=== PATIENT | female | born 1935 | race Caucasian/White ===

== ENCOUNTER 2019-10-11 12:08 | Inpatient (IN) | payer MEDICARE, MEDICAID ==
[~2019-10-11] VITALS: Ht 152.4 cm; Wt 57.2 kg
[2019-10-11] MEDS ORDERED: ROCALTROL0.5 MCG PO ×2 (12:46→15:55)
[2019-10-11] MEDS ORDERED: NATURE'S BLEND F1 MG PO ×2 (12:47→15:57)
[2019-10-11] MEDS ORDERED: OMEPRAZOLE40 M1 PO ×2 (12:48→15:58)
[2019-10-11] MEDS ORDERED: LASIX20 MG PO ×2 (12:49→15:57)
[2019-10-11] MEDS ORDERED: ALPRAZOLAM XR0.5 M2 PO (12:49)
[2019-10-11] MEDS ORDERED: CLONIDINE HYDR0.1 M1 (12:50)
[2019-10-11] MEDS ORDERED: ATORVASTATIN CA10 M1 (12:50)
[2019-10-11] MEDS ORDERED: CARAFATE1 GM PO ×2 (12:50→15:55)
[2019-10-11] MEDS ORDERED: XARELTO20 M1 PO ×2 (12:52→15:53)
[2019-10-11] MEDS ORDERED: COREG6.25 M1 (12:52)
[2019-10-11] MEDS ORDERED: MONTELUKAST SOD10 M1 PO ×2 (12:53→15:56)
[2019-10-11] MEDS ORDERED: AMLODIPINE BESY1 T14 PO (12:53)
[2019-10-11] MEDS ORDERED: TIROSINT50 MC1 (12:53)
[2019-10-11] MEDS ORDERED: BUPROPION HCL150 M1 PO (12:54)
[2019-10-11 13:16] LABS: BASOPHIL % 0.3 % (0-2); CALCIUM 8.7 mg/dL (8.5-10.1); CARBON DIOXIDE 27.8 mmol/L (21-32); CHLORIDE SERUM 102 mmol/L (98-107); CREATININE SERUM 1.3 mg/dL (0.6-1.0); GLUCOSE SERUM 147 mg/dL (74-106); PLATELET COUNT 231 x10^3mcL (130-400); POTASSIUM SERUM 4.1 mmol/L (3.5-5.1); SODIUM SERUM 138 mmol/L (136-145)
[2019-10-11 13:20] LABS: ALKALINE PHOSPHATASE 75 U/L (46-116); ALT/SGPT 19 U/L (14-59); AST/SGOT 13 U/L (15-37); BILIRUBIN TOTAL 0.19 mg/dL (0.20-1.00); TOTAL PROTEIN, SERUM 6.3 g/dL (6.4-8.2)
[2019-10-11 15:46] VITALS: BP 126/57
[2019-10-11 15:50] VITALS: Ht 152.4 cm; Wt 57.2 kg
[2019-10-11] MEDS ORDERED: ADALAT CC60 MG PO (15:51)
[2019-10-11] MEDS ORDERED: DORZOLAMIDE HYD10 M4 OU (15:52)
[2019-10-11] MEDS ORDERED: LATANOPROST 0.7.5 ML OP (15:52)
[2019-10-11] MEDS ORDERED: NATURAL IRON65 MG PO (15:53)
[2019-10-11] MEDS ORDERED: AMLODIPINE BESY10 M2 PO (15:54)
[2019-10-11] MEDS ORDERED: XAN5 PO (15:54)
[2019-10-11] MEDS ORDERED: CLONIDINE HYDR0.1 M1 PO (15:54)
[2019-10-11] MEDS ORDERED: LEVOXYL0.05 MG PO (15:55)
[2019-10-11] MEDS ORDERED: BUPROPION HYDR150 M1 PO (15:56)
[2019-10-11] MEDS ORDERED: MYSOLINE50 M1 PO (15:57)
[2019-10-11] MEDS ORDERED: COREG6.25 M1 PO (15:57)
[2019-10-11] MEDS ORDERED: ATORVASTATIN CA10 M1 PO (15:57)
[2019-10-11] MEDS ORDERED: PROPAFENONE HC225 M1 PO (15:58)
[2019-10-11] MEDS ORDERED: ALBUTEROL3 ML IH (16:03)
[2019-10-11] MEDS ORDERED: PROAIR HFA8.5 GM INH (16:03)
[2019-10-11 19:00] VITALS: BP 126/57
[2019-10-11 19:30] VITALS: BP 127/55
[2019-10-12 05:51] VITALS: BP 152/61
[2019-10-12 06:47] LABS: CALCIUM 8.9 mg/dL (8.5-10.1); CHLORIDE SERUM 106 mmol/L (98-107); CREATININE SERUM 1.1 mg/dL (0.6-1.0); GLUCOSE SERUM 104 mg/dL (74-106); POTASSIUM SERUM 4.3 mmol/L (3.5-5.1); SODIUM SERUM 142 mmol/L (136-145)
[2019-10-12 07:06] LABS: BASOPHIL % 0.3 % (0-2); PLATELET COUNT 217 x10^3mcL (130-400)
[2019-10-12 07:13] LABS: RED CELL DISTRIBUTION WIDTH 14.6 % (11.5-14.5)
[2019-10-12 07:34] VITALS: BP 149/51
[2019-10-12 12:20] VITALS: BP 163/75
[2019-10-12 16:22] VITALS: BP 188/84
[2019-10-12 17:13] VITALS: BP 164/77
[2019-10-12 20:10] VITALS: BP 142/66
[2019-10-13 06:32] VITALS: BP 159/71
[2019-10-13 07:10] LABS: BASOPHIL % 0.3 % (0-2); PLATELET COUNT 216 x10^3mcL (130-400)
[2019-10-13 07:15] LABS: CALCIUM 9.1 mg/dL (8.5-10.1); CARBON DIOXIDE 28.9 mmol/L (21-32); CHLORIDE SERUM 104 mmol/L (98-107); CREATININE SERUM 1.1 mg/dL (0.6-1.0); GLUCOSE SERUM 110 mg/dL (74-106); POTASSIUM SERUM 4.1 mmol/L (3.5-5.1); SODIUM SERUM 140 mmol/L (136-145)
[2019-10-13 07:39] LABS: RED CELL DISTRIBUTION WIDTH 14.6 % (11.5-14.5)
[2019-10-13 08:16] VITALS: BP 175/77
[2019-10-13] MEDS ORDERED: NOR5 PO (09:43)
[2019-10-13 10:43] VITALS: BP 175/77
== END 2019-10-13 12:51 | disposition home or self-care (01) | DRG 391 ==
LOC: ED 12:08 → DU 13:45 → MU 10-12 15:26
PROVIDERS: Emergency Medicine; ADMIT Family Medicine
DX: K21.9 Gastro-esophageal reflux disease without esophagitis (principal); N17.0 Acute kidney failure with tubular necrosis; E86.0 Dehydration; I95.2 Hypotension due to drugs; E03.9 Hypothyroidism, unspecified; I10 Essential (primary) hypertension; I48.0 Paroxysmal atrial fibrillation; R55 Syncope and collapse; Z86.73 Personal history of transient ischemic attack (TIA), and cerebral infarction without residual deficits; Z79.899 Other long term (current) drug therapy
CPT/HCPCS: 83880; 97116-GP; G0378; J1885; J2060; J7030; J7040; Q0092